=== PATIENT | female | born 1950 | race Caucasian/White ===

== ENCOUNTER 2018-10-19 17:33 | Emergency (ER) | payer OTHER ==
[~2018-10-19] VITALS: Ht 170.2 cm; Wt 68.0 kg
[2018-10-19] MEDS ORDERED: CODEINE/GUAIFEN1 SOL PO (19:06)
[2018-10-19] MEDS ORDERED: AMOXICILLIN500 MG PO (19:06)
[2018-10-19 19:21] VITALS: BP 110/69
== END 2018-10-19 19:35 | disposition home or self-care (01) | DRG 153 ==
LOC: ED 17:33
DX: J06.9 Acute upper respiratory infection, unspecified (principal); H66.91 Otitis media, unspecified, right ear; E78.5 Hyperlipidemia, unspecified; F32.9 Major depressive disorder, single episode, unspecified; F17.210 Nicotine dependence, cigarettes, uncomplicated